=== PATIENT | female | born 1990 | race Caucasian/White ===

== ENCOUNTER → 2020-10-01 | Outpatient (REF) | payer OTHER ==
[2020-10-01 17:52] LABS: BASO % 0.3 % (0.0-1.0); EOS # 0.1 10^3/uL (0.0-0.5); EOS % 1.1 % (0.0-3.0); HEMOGLOBIN 12.5 g/dl (12.0-15.5); LYMPH % 30.7 % (24.0-44.0); MEAN CORPUSCULAR HEMOGLOBIN 29.6 pg (27.0-33.0); MEAN CORPUSCULAR HGB CONC 32.1 g/dl (32.0-36.5); MEAN CORPUSCULAR VOLUME 92.4 fl (80.0-96.0); MONO # 0.4 10^3/uL (0.0-0.8); MONO % 6.7 % (0.0-5.0); NEUTROPHILS % 60.9 % (36.0-66.0); PLATELET COUNT, AUTOMATED 228 10^3/uL (150-450); RED BLOOD COUNT 4.22 10^6/uL (4.00-5.40); WHITE BLOOD COUNT 6.6 10^3/uL (4.0-10.0)
[2020-10-01 18:08] LABS: ALBUMIN 3.4 GM/DL (3.2-5.2); ALT/SGPT 30 U/L (12-78); BILIRUBIN,TOTAL 0.3 MG/DL (0.2-1.0); BLOOD UREA NITROGEN 10 MG/DL (7-18); CARBON DIOXIDE LEVEL 29 MEQ/L (21-32); CHLORIDE LEVEL 106 MEQ/L (98-107); CREATININE FOR GFR 0.52 MG/DL (0.55-1.30); GLOMERULAR FILTRATION RATE > 60.0 (>60); GLUCOSE, FASTING 88 MG/DL (70-100); POTASSIUM SERUM 4.3 MEQ/L (3.5-5.1); SODIUM LEVEL 139 MEQ/L (136-145)
== END ==
LOC: M LAB REF 16:44
PROVIDERS: ATTEND Physician Assistant
DX: R53.83 Other fatigue (principal)

== ENCOUNTER → 2020-10-02 | Outpatient (REF) | LOC: M LAB 08:29 | PROVIDERS: ATTEND Nurse Practitioner Adult Health | DX: Z01.84 Encounter for antibody response examination (principal); Z04.89 Encounter for examination and observation for other specified reasons ==

== ENCOUNTER → 2020-10-09 | Outpatient (REF) | payer OTHER | LOC: M LAB REF 16:21 | PROVIDERS: ATTEND Physician Assistant | DX: R82.5 Elevated urine levels of drugs, medicaments and biological substances (principal) ==

== ENCOUNTER → 2021-06-04 | Outpatient (CLI) | payer OTHER ==
--- NOTE | 2021-06-05 13:12 | REPVR ---
PROCEDURE INFORMATION: Exam: MR Lumbar Spine Without Contrast Exam date and time: 06/04/2021 8:41 AM Age: 30 years old Clinical indication: Low back pain; Additional info: Spondylosis TECHNIQUE: Imaging protocol: Multiplanar magnetic resonance images of the lumbar spine without intravenous contrast. COMPARISON: No relevant prior studies available. FINDINGS: Vertebrae: Vertebral body heights are intact. Alignment is maintained. There appear to be chronic bilateral pars defects at L5. Spinal cord: The conus is unremarkable in appearance, with its tip at the T12-L1 level. Multilevel findings: There are mild degrees of disc desiccation indicating intervertebral disc degeneration. L1-L2: No significant disc displacement. L2-L3: No significant disc displacement. L3-L4: No significant disc displacement. L4-L5: Very small bulge without significant neural foraminal narrowing or spinal stenosis. L5-S1: Small bulge leading to very mild bilateral neural foraminal narrowing without significant spinal stenosis. Soft tissues: Unremarkable. IMPRESSION: 1. Mild multilevel disc desiccation indicating intervertebral disk degeneration with small disc displacements as described. 2. Chronic bilateral spondylolysis at L5. COMMENTS: If surgery is considered, recommend level confirmation. Electronically signed by: Shayne Krishnan On 06/05/2021 13:11:55 PM
== END ==
LOC: M PLAIMG 08:02
PROVIDERS: ATTEND Physician Assistant
DX: M51.36 Other intervertebral disc degeneration, lumbar region (principal)

== ENCOUNTER → 2021-10-29 | Outpatient (CLI) | payer OTHER | LOC: M PLARAD 09:52 | PROVIDERS: ATTEND Nurse Practitioner Family | DX: M47.812 Spondylosis without myelopathy or radiculopathy, cervical region (principal) ==

== ENCOUNTER 2022-07-08 01:13 | Emergency (ER) | payer OTHER ==
[~2022-07-08] VITALS: Ht 162.6 cm; Wt 80.9 kg
[2022-07-08 02:03] LABS: HEMATOCRIT 35.3 % (36.0-47.0); HEMOGLOBIN 11.6 g/dl (12.0-15.5); MEAN CORPUSCULAR HEMOGLOBIN 28.3 pg (27.0-33.0); MEAN CORPUSCULAR HGB CONC 32.9 g/dl (32.0-36.5); MEAN CORPUSCULAR VOLUME 86.1 fl (80.0-96.0); PLATELET COUNT, AUTOMATED 213 10^3/uL (150-450); WHITE BLOOD COUNT 7.1 10^3/uL (4.0-10.0)
[2022-07-08] MEDS ORDERED: BISACODYL 5 MG TAB PO ONE (03:30)
[2022-07-08] MEDS ORDERED: MIRA3350 PO (03:34)
[2022-07-08 03:39] VITALS: BP 120/77
== END 2022-07-08 03:46 | disposition home or self-care (01) ==
LOC: M ED 01:13
DX: K59.00 Constipation, unspecified (principal); O04.80 (Induced) termination of pregnancy with unspecified complications; N93.9 Abnormal uterine and vaginal bleeding, unspecified

== ENCOUNTER 2022-09-05 14:24 | Emergency (ER) | payer OTHER ==
[~2022-09-05] VITALS: Ht 162.6 cm; Wt 81.4 kg
[~2022-09-05 14:24] MED LIST: MIRA3350 PO
[2022-09-05 15:57] LABS: RSV AMPLIFICATION NEGATIVE (NEGATIVE)
[2022-09-05] MEDS ORDERED: KETOROLAC TROMETHAMINE 10 MG TAB PO ONE (16:40)
[2022-09-05] MEDS ORDERED: ONDANSETRON 4MG ORAL DISINTEGRATING TAB PO ONE (16:40)
[2022-09-05] MEDS ORDERED: ONDA4TAB6 PO (16:43)
[2022-09-05 17:04] VITALS: BP 133/78
== END 2022-09-05 17:06 | disposition home or self-care (01) ==
LOC: M ED 14:24
DX: J09.X9 Influenza due to identified novel influenza A virus with other manifestations (principal); R11.2 Nausea with vomiting, unspecified; R50.9 Fever, unspecified; F41.9 Anxiety disorder, unspecified